=== PATIENT | female | born 1975 | race Caucasian/White ===

== ENCOUNTER 2016-08-19 09:31 | Emergency (ER) | payer OTHER ==
--- NOTE | 2016-08-19 11:35 | DIAGNOSTIC IMAGING REPORT ---
PROCEDURE: US VENOUS - RIGHT EXT INDICATION: PAIN TECHNIQUE: Duplex sonography of the deep venous system in the right lower extremity was performed. Compression and augmentation techniques were used. COMPARISON: 12/31/2010 FINDINGS: Each interrogated segment of deep vein from the common femoral vein into the calf veins demonstrates normal compressibility, augmentation and/or color Doppler flow without filling defect. No evidence of significant soft-tissue edema, soft-tissue mass or cyst. IMPRESSION: 1. No deep venous thrombosis in the right lower extremity.
--- NOTE | 2016-08-19 12:24 | ED CLINICAL REPORT ---
Clinical Report - Physicians/Mid Levels [facility] [address] [place] [address] 08/19/2016 9:31 Patient: ERASTO BROWNLEE Time Seen: 09:38. Arrived- By private vehicle. Historian- patient. HISTORY OF PRESENT ILLNESS Chief Complaint: LOWER EXTREMITY PAIN. Severity is described as being moderate. The quality is noted to be aching. This started today and is still present. It was abrupt in onset and has been constant. Symptoms located in the area of the right leg. The patient has not had redness. No swelling. She has had mild difficulty walking. It has been associated with pain in the right leg. Patient denies an injury. Similar symptoms previously: Once. Diagnosis: (ruptured Leiva's cyst). REVIEW OF SYSTEMS No chills, fever, sweats, chest pain or cough. No difficulty breathing, pedal edema, palpitations, abdominal pain or black stools. No bloody stools, constipation, diarrhea, nausea or vomiting. No urinary problems. All systems otherwise negative, except as recorded above. PAST HISTORY ( PCP - Mary). Problems: Leiva's Cyst. Sprain. Hyperventilation. Carcinoma in situ of uterine cervix. Migraine Headache. Additional Surgeries: Hysterectomy. Skin Cancer removal in face. Medications: Keppra Oral 400 mg, 2x a day. Estrogens Conjugated Oral. Ambien CR Oral. Allergies: No Known Drug Allergy. SOCIAL HISTORY Never smoker. Occasional alcohol use. No drug use. Is a local resident. FAMILY HISTORY Diabetes in first-degree relative (a child); cancer in first-degree relative (mother). ADDITIONAL NOTES The nursing notes have been reviewed. PHYSICAL EXAM Vital Signs: 08/19/2016 09:40 BP: 107/53. HR: 73. RR: 16. O2 saturation: 98%. Temp: 97.9 F. Pain level now: 3/10. Have been reviewed. Appearance: Alert. No acute distress. Eyes: Pupils equal, round and reactive to light. ENT: Pharynx normal. Neck: Normal inspection. Neck supple. CVS: Normal heart rate and rhythm. Heart sounds normal. Respiratory: No respiratory distress. Breath sounds normal. Abdomen: Soft and nontender. No organomegaly. Back: Normal inspection. ROM normal. Skin: Skin intact. Skin warm and dry. Normal skin color. Normal skin turgor. Extremities: Right knee: mild tenderness located in the posterior knee. Neurovascular intact distally. (some small varicose veins in the skin laterally). No joint effusion. No erythema, swelling or deformity. No limitation in ROM. Mild right-sided calf tenderness. Neuro: No motor deficit. No sensory deficit. LABS, X-RAYS, AND EKG Lower Extremity Sonography: Negative exam. discussed with the US tech. The study was independently viewed by me. Laboratory Tests: CBC w Diff: (NICOLA: 08/19/2016 10:40) ( MsgRcvd 08/19/2016 11:05) Final results Test Result Flag Units (Reference) WHITE BLOOD COUNT 6.2 K/uL (4.5-11.5) RED BLOOD COUNT 4.16 M/uL (4.00-5.20) HEMOGLOBIN 11.9 L gm/dL (12.0-16.0) HEMATOCRIT 35.6 L % (36.0-46.0) MEAN CELL VOLUME 86 fL (80-100) MEAN CORPUSCULAR HGB 29 pg (26-34) MEAN CORPUSCULAR HGB CONC 33 g/dL (31-37) RED CELL DISTRIBUTION WIDTH 12.8 % (11.6-14.8) PLATELET COUNT 274 K/uL (150-400) NEUTROPHIL % 56.1 % (50-75) LYMPH % 34.9 % (25-40) MONO % 6.1 % (3-14) EOSINOPHIL % 2.4 % (0-4) BASOPHIL % 0.5 % (0-2) PT with INR: (NICOLA: 08/19/2016 10:40) ( MsgRcvd 08/19/2016 11:20) Final results Test Result Flag Units (Reference) INR 1.0 (0.8-1.2) Low Intensity Therapy: INR 1.5-2.0 PT range 18.5-23.1Mod.Intensity Therapy: INR 2.0-3.0 PT range 23.1-31.5High Intensity Therapy: INR 2.5-3.5 PT range 27.4-35.5High Intensity Therapy 2: INR 3.0-4.0 PT range 31.5-39.3 APTT 31 SECONDS (24-34) CMP: (NICOLA: 08/19/2016 10:40) ( MsgRcvd 08/19/2016 12:14) Final results Test Result Flag Units (Reference) GLUCOSE 90 mg/dL (70-110) BUN 12 mg/dL (7-18) CREATININE 0.8 mg/dL (0.6-1.3) Estimated GFR >60 mL/min Estimated GFR- >60 mL/min Note: Persistent reduction over 3 months in eGFR<60 mL/min/1.73 m2 defines CKD. Patients with eGFR values>=60 mL/min/1.73 m2 may also have CKD if evidence ofpersistent proteinuria. Additional information may be foundat www.kidney.org. SODIUM 140 mmol/L (136-145) POTASSIUM 4.2 mmol/L (3.5-5.1) CHLORIDE 104 mmol/L (98-107) CARBON DIOXIDE 28 mmol/L (21-32) CALCIUM 9.3 mg/dL (8.5-10.1) TOTAL PROTEIN 7.3 g/dL (6.4-8.2) ALBUMIN 3.7 g/dL (3.3-5.0) BILIRUBIN, TOTAL 0.6 mg/dL (0.0-1.0) ALKALINE PHOSPHATASE 87 U/L (46-116) AST (SGOT) 16 U/L (15-37) ALT (SGPT) 22 U/L (12-78) . PROGRESS AND PROCEDURES Course of Care: Patient is stable. Patient/family counseled. Old medical records reviewed. Disposition: Discharged. Condition: stable. CLINICAL IMPRESSION Acute left thigh, knee and lower leg pain. INSTRUCTIONS Apply ice for 20 minutes four times a day until better. Don't apply ice directly to skin and don't use while asleep. You may walk and bear weight as tolerated. Warnings: Further evaluation is necessary. GENERAL WARNINGS: Return or contact your physician immediately if your condition worsens or changes unexpectedly, if not improving as expected, or if other problems arise. Your Current Medications: CONTINUE TAKING THE FOLLOWING MEDICATIONS: Ambien CR Oral. Estrogens Conjugated Oral. Keppra Oral : 400 mg 2x a day. OTC Medications: Motrin (available over the counter): take according to label instructions. Follow-up: Follow up with your doctor in seven days. Call for the next available appointment. Understanding of the discharge instructions verbalized by patient. (Electronically signed by Jeremy Collazo MD 08/19/2016 15:05)
--- NOTE | 2016-08-19 12:24 | ED ORDER SUMMARY ---
..... Patient: ERASTO BROWNLEE OrderSheet [facility] VisitID: [id number] [place] [address] 40y, F Registration Date/Time: 08/19/2016 ORDER SHEET Weight: 63.5 kg (stated) Allergies: No Known Drug Allergy GENERAL ORDERS: US Venous Right Urgent (10:08/19/2016 Dara HE) (Ack 10:38 Stephan) (10:54 JBest R.N.) CBC w Diff Urgent (10:08/19/2016 Dara HE) (Ack 10:38 Stephan) (10:53 JBest R.N.) CMP Urgent (10:08/19/2016 Dara HE) (Ack 10:38 Stephan) (10:53 JBest R.N.) PT with INR Urgent (10:08/19/2016 Dara HE) (Ack 10:38 Stephan) (10:53 JBest R.N.) PTT Urgent (10:08/19/2016 Dara HE) (Ack 10:38 Stephan) (10:53 JBest R.N.) MEDICATION ORDERS: IV FLUIDS: IV Saline Lock (:08/19/2016 Dara HE) (10:53 LSullivan R.N.) ORDER SHEET NOTES: [Electronically signed by Bety Yates R.N. (12:56 08/19/2016)] [Electronically signed by Jeremy Collazo MD (15:05 08/19/2016)] [Electronically locked/signed by Bety Yates R.N. (12:56 08/19/2016)]
--- NOTE | 2016-08-19 12:24 | ED NURSING NOTES ---
Clinical Report - Nurses [facility] [address] 08/19/2016 9:31 Patient: ERASTO BROWNLEE TRIAGE Triage time 0935 AM. Acuity: LEVEL 4. Chief Complaint: RIGHT LOWER EXTREMITY PAIN and SWELLING. --09:50 Bety Yates R.N. 09:40 08/19/16. BP: 107/53. HR: 73. RR: 16. O2 saturation: 98%. Temp: 97.9 F. Pain level now: 08/05. --09:50 Bety Yates R.N. SEPSIS SCREEN: Sepsis Screen. Negative (no infection suspected/documented). KINGSLEY COMA SCORE: Kingsley Coma Scale: 15- eyes open spontaneously (4); best verbal response- oriented x 4 (5); best motor response- obeys commands (6). --09:51 Bety Yates R.N. correction to prior entry -patient called PCP prior to arrival and was referred to the ED for a work up. PCP did not contact ED prior to arrival as stated above. --11:22 Bety Yates R.N. Weight: 63.5 kg stated. Height/Length: 63 inches Per Patient. BMI: 24.8. --09:47 Bety Yates R.N. Medications Ambien CR Oral. --09:44 Bety Yates R.N. Estrogens Conjugated Oral. --09:44 Bety Yates R.N. Keppra Oral 400 mg, 2x a day. --09:44 Bety Yates R.N. Allergies No Known Drug Allergy. --09:44 Bety Yates R.N. History Arrived by private vehicle. Historian: patient. Primary care physician notified of patient's arrival. Primary physician called the ED prior to patient's arrival and referred the patient for evaluation. This occurred today. 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 PAST MEDICAL HX: Immunizations: up-to-date. Denies current . SURGERY HX: Had hysterectomy. SOCIAL HX: Never smoker. No alcohol use or drug use. SELF HARM ASSESSMENT: A self harm assessment was performed. The patient answered "no" to the question "Do you have thoughts of harming or killing yourself?". ABUSE ASSESSMENT: Abuse assessment: ("yes") The patient was asked "Do you feel safe in your home?". --09:50 Bety Yates R.N. PROBLEMS: Leiva's Cyst. Sprain. Hyperventilation. Carcinoma in situ of uterine cervix. Migraine Headache. --09:46 Bety Yates R.N. Interventions ID band on patient. --09:50 Bety Yates R.N. PHYSICAL ASSESSMENT Ambulatory to room. Patient gowned. GENERAL / NEURO / PSYCH: Oriented X 4. Alert. Appears in no acute distress. EXTREMITIES: Right thigh: tenderness and swelling. SKIN: Skin intact. Skin is warm and dry. --09:52 Bety Yates R.N. NURSING PROGRESS NOTES 09:53 08/19/16. Patient gowned. Patient identifiers checked. Call light placed in reach. Bed placed in lowest position. Patient ready for evaluation- ED physician notified. --09:53 Bety Yates R.N. 10:53 08/19/2016 Site #1 started via IV in the left antecubital space with an 20g angiocath; one attempt. Blood drawn: rainbow set. Labeled in the presence of the patient and sent to the lab. Saline lock flushed with 10 mL saline. --10:53 Svetlana Poole R.N. DISPOSITION / DISCHARGE 12:42 08/19/2016 Site #1 removed upon discharge. Bandage applied. --12:43 Bety Yates R.N. Condition at departure: improved. Discharge instructions provided and reviewed with the patient. Reviewed medication(s). Prescription(s) given to the patient. She has no activity restrictions. Patient verbalized understanding. Written instructions provided in Italian. The patient was discharged by the physician. She was discharged home and accompanied by family. She left the Emergency Department ambulatory and via private vehicle. Patient driving. --12:44 Bety Yates R.N. 12:42 08/19/16. BP: 101/50. HR: 73. RR: 16. Temp: 98 F. Pain level now: 07/08. --12:44 Bety Yates R.N. 12:44 08/19/16. O2 saturation: 99%. --12:45 Bety Yates R.N. Locked/Released at 08/19/2016 12:56 by Bety Yates R.N.
--- NOTE | 2016-08-19 12:24 | ED ORDER SUMMARY ---
..... Patient: ERASTO BROWNLEE OrderSheet [facility] VisitID: [id number] [place] [address] 40y, F Registration Date/Time: 08/19/2016 ORDER SHEET Weight: 63.5 kg (stated) Allergies: No Known Drug Allergy GENERAL ORDERS: US Venous Right Urgent (10:08/19/2016 Dara HE) (Ack 10:38 Stephan) (10:54 JBest R.N.) CBC w Diff Urgent (10:08/19/2016 Dara HE) (Ack 10:38 Stephan) (10:53 JBest R.N.) CMP Urgent (10:08/19/2016 Dara HE) (Ack 10:38 Stephan) (10:53 JBest R.N.) PT with INR Urgent (10:08/19/2016 Dara HE) (Ack 10:38 Stephan) (10:53 JBest R.N.) PTT Urgent (10:08/19/2016 Dara HE) (Ack 10:38 Stephan) (10:53 JBest R.N.) MEDICATION ORDERS: IV FLUIDS: IV Saline Lock (:08/19/2016 Dara HE) (10:53 LSullivan R.N.) ORDER SHEET NOTES: [Electronically signed by Bety Yates R.N. (12:56 08/19/2016)] [Electronically signed by Jeremy Collazo MD (15:05 08/19/2016)] [Electronically locked/signed by Bety Yates R.N. (12:56 08/19/2016)]
--- NOTE | 2016-08-19 12:24 | ED NURSING NOTES ---
Clinical Report - Nurses [facility] [place] [address] 08/19/2016 9:31 Patient: ERASTO BROWNLEE TRIAGE Triage time 0935 AM. Acuity: LEVEL 4. Chief Complaint: RIGHT LOWER EXTREMITY PAIN and SWELLING. --09:50 Bety Yates R.N. 09:40 08/19/16. BP: 107/53. HR: 73. RR: 16. O2 saturation: 98%. Temp: 97.9 F. Pain level now: 08/05. --09:50 Bety Yates R.N. SEPSIS SCREEN: Sepsis Screen. Negative (no infection suspected/documented). KINGSLEY COMA SCORE: Kingsley Coma Scale: 15- eyes open spontaneously (4); best verbal response- oriented x 4 (5); best motor response- obeys commands (6). --09:51 Bety Yates R.N. correction to prior entry -patient called PCP prior to arrival and was referred to the ED for a work up. PCP did not contact ED prior to arrival as stated above. --11:22 Bety Yates R.N. Weight: 63.5 kg stated. Height/Length: 63 inches Per Patient. BMI: 24.8. --09:47 Bety Yates R.N. Medications Ambien CR Oral. --09:44 Bety Yates R.N. Estrogens Conjugated Oral. --09:44 Bety Yates R.N. Keppra Oral 400 mg, 2x a day. --09:44 Bety Yates R.N. Allergies No Known Drug Allergy. --09:44 Bety Yates R.N. History Arrived by private vehicle. Historian: patient. Primary care physician notified of patient's arrival. Primary physician called the ED prior to patient's arrival and referred the patient for evaluation. This occurred today. 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 PAST MEDICAL HX: Immunizations: up-to-date. Denies current . SURGERY HX: Had hysterectomy. SOCIAL HX: Never smoker. No alcohol use or drug use. SELF HARM ASSESSMENT: A self harm assessment was performed. The patient answered "no" to the question "Do you have thoughts of harming or killing yourself?". ABUSE ASSESSMENT: Abuse assessment: ("yes") The patient was asked "Do you feel safe in your home?". --09:50 Bety Yates R.N. PROBLEMS: Leiva's Cyst. Sprain. Hyperventilation. Carcinoma in situ of uterine cervix. Migraine Headache. --09:46 Bety Yates R.N. Interventions ID band on patient. --09:50 Bety Yates R.N. PHYSICAL ASSESSMENT Ambulatory to room. Patient gowned. GENERAL / NEURO / PSYCH: Oriented X 4. Alert. Appears in no acute distress. EXTREMITIES: Right thigh: tenderness and swelling. SKIN: Skin intact. Skin is warm and dry. --09:52 Bety Yates R.N. NURSING PROGRESS NOTES 09:53 08/19/16. Patient gowned. Patient identifiers checked. Call light placed in reach. Bed placed in lowest position. Patient ready for evaluation- ED physician notified. --09:53 Bety Yates R.N. 10:53 08/19/2016 Site #1 started via IV in the left antecubital space with an 20g angiocath; one attempt. Blood drawn: rainbow set. Labeled in the presence of the patient and sent to the lab. Saline lock flushed with 10 mL saline. --10:53 Svetlana Poole R.N. DISPOSITION / DISCHARGE 12:42 08/19/2016 Site #1 removed upon discharge. Bandage applied. --12:43 Bety Yates R.N. Condition at departure: improved. Discharge instructions provided and reviewed with the patient. Reviewed medication(s). Prescription(s) given to the patient. She has no activity restrictions. Patient verbalized understanding. Written instructions provided in Croatian. The patient was discharged by the physician. She was discharged home and accompanied by family. She left the Emergency Department ambulatory and via private vehicle. Patient driving. --12:44 Bety Yates R.N. 12:42 08/19/16. BP: 101/50. HR: 73. RR: 16. Temp: 98 F. Pain level now: 07/08. --12:44 Bety Yates R.N. 12:44 08/19/16. O2 saturation: 99%. --12:45 Bety Yates R.N. Locked/Released at 08/19/2016 12:56 by Btey Yates R.N.
--- NOTE | 2016-08-19 15:05 | ED MAR SUMMARY ---
..... Medication Administration Record [facility] [address] [place] [id number] Patient: ERASTO BROWNLEE Visit ID: [id number] 40y, F Weight: 63.5 kg Height/Length: 63 in BMI: 24.8 ALLERGIES: No Known Drug Allergy
--- NOTE | 2016-08-19 15:05 | ED MED RECONCILIATION SUMMARY ---
Patient: ERASTO BROWNLEE Medication Reconciliation Report [facility] VisitID: [id number] [address] [place] [address] 40y, F Registration Date/Time: 08/19/2016 Weight: 63.5 kg Height/Length: 63 in. BMI: 24.8 ALLERGIES: No Known Drug Allergy The patient's Home Medications are listed below: CONTINUE TAKING THE FOLLOWING MEDICATIONS: Ambien CR Oral Estrogens Conjugated Oral Keppra Oral 400 mg, 2x a day The source(s) of the original Home Medication information: Not obtained. The following Medications were given to the patient in the Emergency Department: None. The following Medications were prescribed to the patient: Motrin (available over the counter): take according to label instructions. -- Jeremy Collazo MD
--- NOTE | 2016-08-19 15:05 | ED MAR SUMMARY ---
..... Medication Administration Record [facility] [address] [place], [place] [id number] Patient: ERASTO BROWNLEE Visit ID: [id number] 40y, F Weight: 63.5 kg Height/Length: 63 in BMI: 24.8 ALLERGIES: No Known Drug Allergy
--- NOTE | 2016-08-19 15:05 | ED DISCHARGE INSTRUCTIONS ---
Patient: ERASTO BROWNLEE General Instructions [facility] VisitID: [id number] [place] [address] 40y, F Registration Date/Time: 08/19/2016 Acute left thigh, knee and lower leg pain. INSTRUCTIONS Apply ice for 20 minutes four times a day until better. Don't apply ice directly to skin and don't use while asleep. You may walk and bear weight as tolerated. Warnings: Further evaluation is necessary. GENERAL WARNINGS: Return or contact your physician immediately if your condition worsens or changes unexpectedly, if not improving as expected, or if other problems arise. Your Current Medications: CONTINUE TAKING THE FOLLOWING MEDICATIONS: Ambien CR Oral. Estrogens Conjugated Oral. Keppra Oral : 400 mg 2x a day. OTC Medications: Motrin (available over the counter): take according to label instructions. Follow-up: Follow up with your doctor in seven days. Call for the next available appointment. Understanding of the discharge instructions verbalized by patient. ADDITIONAL INFORMATION Myofascial Pain Syndrome: Fibrositis Your pain is caused by a state of chronic muscle tension. This condition is called by various names: myofascial pain, fibrositis and trigger point pain. This can also be due to mechanical stress (such as working at a computer terminal for long periods; or work that requires repetitive motions of the arms or hands) or emotional stress (such as problems on the job or in your personal life). Sometimes there is no obvious cause. The pain can occur in the area of the muscle spasm or at a site distant to it. For example, spasm of a neck muscle can cause headache. Spasm of the muscle near the shoulder blade can cause pain shooting down the arm. Home Care: Try to identify the factors that may be causing your problem and change them: If you feel thatemotional stressis a cause of your pain, learn methods to deal more effectively with the stress in your life. These may include regular exercise, muscle relaxation techniques, meditation or simply taking time out for yourself. Consult your doctor or go to a local bookstore and review the many books and tapes available on the subject of stress reduction. If you feel that physical stress is a cause for your pain, try to modify any poor work habits. You may use acetaminophen (Tylenol) or ibuprofen (Motrin, Advil) to control pain, unless another medicine was prescribed. [NOTE: If you have chronic liver or kidney disease or ever had a stomach ulcer or GI bleeding, talk with your doctor before using these medicines.] The use of heat to the muscle (hot compress or heating pad) will be helpful to reduce muscle spasm. Some persons get relief with ice packs. Apply an ice pack (crushed or cubed ice in a plastic bag, wrapped in a towel) for 20 minutes at a time as needed. Use the method that feels best to you. Massaging the trigger point and stretching out the muscleare an important parts of prevention and treatment. Trigger point massage can be done by first applying heat to the area to warm and prepare the muscle. Have someone apply steady thumb pressure directly on the knot in the muscle (the most tender point) for 30 seconds. Release the pressure, then massage the surrounding muscle. Repeat the process, applying more pressure to the trigger point each time. Do this up to the limit of pain. With each treatment, the trigger point should become less tender and the pain should decrease. You can apply local pressure to trigger points in the back by lying on the floor with a tennis ball under the trigger point. Follow Up with your doctor as advised or if not improving within the next week. It may be necessary for you to receive physical therapy if you do not respond to home treatment alone. Get Prompt Medical Attention if any of the following occur: If your trigger point is in the chest muscles, observe for pain that becomes more severe, lasts longer, or spreads into your shoulder/arm, neck or back; you develop trouble breathing, sweating, nausea or vomiting in association with chest pain If you develop weakness or numbness in an extremity If your pain worsens, regardless of its location Ibuprofen Oral tablet What is this medicine? IBUPROFEN (eye BYOO proe fen) is a non-steroidal anti-inflammatory drug (NSAID). It is used for dental pain, fever, headaches or migraines, osteoarthritis, rheumatoid arthritis, or painful monthly periods. It can also relieve minor aches and pains caused by a cold, flu, or sore throat. How should I use this medicine? Take this medicine by mouth with a glass of water. Follow the directions on the prescription label. Take this medicine with food if your stomach gets upset. Try to not lie down for at least 10 minutes after you take the medicine. Take your medicine at regular intervals. Do not take your medicine more often than directed. A special MedGuide will be given to you by the pharmacist with each prescription and refill. Be sure to read this information carefully each time. Talk to your roll repairer regarding the use of this medicine in children. Special care may be needed. What side effects may I notice from receiving this medicine? Side effects that you should report to your doctor or health complex care nurse practitioner as soon as possible: allergic reactions like skin rash, itching or hives, swelling of the face, lips, or tongue black or bloody stools, blood in the urine or in vomit breathing problems changes in vision chest pain general ill feeling or flu-like symptoms nausea or vomiting redness, blistering, peeling or loosening of the skin, including inside the mouth slurred speech or weakness on one side of the body stomach pain unexplained weight gain or swelling unusually weak or tired yellowing of eyes or skin Side effects that usually do not require medical attention (report to your doctor or health complex care nurse practitioner if they continue or are bothersome): constipation or diarrhea dizziness gas or heartburn stomach upset What may interact with this medicine? Do not take this medicine with any of the following medications: cidofovir ketorolac methotrexate pemetrexed This medicine may also interact with the following medications: alcohol aspirin diuretics lithium other drugs for inflammation like prednisone warfarin What if I miss a dose? If you miss a dose, take it as soon as you can. If it is almost time for your next dose, take only that dose. Do not take double or extra doses. Where should I keep my medicine? Keep out of the reach of children. Store at room temperature between 15 and 30 degrees C (59 and 86 degrees F). Keep container tightly closed. Throw away any unused medicine after the expiration date. What should I tell my health care provider before I take this medicine? They need to know if you have any of these conditions: asthma cigarette smoker drink more than 3 alcohol containing drinks a day heart disease or circulation problems such as heart failure or leg edema (fluid retention) high blood pressure kidney disease liver disease stomach bleeding or ulcers an unusual or allergic reaction to ibuprofen, aspirin, other NSAIDS, other medicines, foods, dyes, or preservatives or trying to get breast-feeding What should I watch for while using this medicine? Tell your doctor or healthcare professional if your symptoms do not start to get better or if they get worse. This medicine does not prevent heart attack or stroke. In fact, this medicine may increase the chance of a heart attack or stroke. The chance may increase with longer use of this medicine and in people who have heart disease. If you take aspirin to prevent heart attack or stroke, talk with your doctor or health complex care nurse practitioner. Do not take other medicines that contain aspirin, ibuprofen, or naproxen with this medicine. Side effects such as stomach upset, nausea, or ulcers may be more likely to occur. Many medicines available without a prescription should not be taken with this medicine. This medicine can cause ulcers and bleeding in the stomach and intestines at any time during treatment. Ulcers and bleeding can happen without warning symptoms and can cause . To reduce your risk, do not smoke cigarettes or drink alcohol while you are taking this medicine. You may get drowsy or dizzy. Do not drive, use machinery, or do anything that needs mental alertness until you know how this medicine affects you. Do not stand or sit up quickly, especially if you are an older patient. This reduces the risk of dizzy or fainting spells. This medicine can cause you to bleed more easily. Try to avoid damage to your teeth and gums when you brush or floss your teeth. You have been given the following additional information: Myofascial Pain Syndrome Ibuprofen Oral tablet You may walk and bear weight as tolerated. (Electronically signed by Jeremy Collazo MD 08/19/2016 15:05)
--- NOTE | 2016-08-19 15:05 | ED MED RECONCILIATION SUMMARY ---
Patient: ERASTO BROWLNEE Medication Reconciliation Report [facility] VisitID: [id number] [address] [place] [address] 40y, F Registration Date/Time: 08/19/2016 Weight: 63.5 kg Height/Length: 63 in. BMI: 24.8 ALLERGIES: No Known Drug Allergy The patient's Home Medications are listed below: CONTINUE TAKING THE FOLLOWING MEDICATIONS: Ambien CR Oral Estrogens Conjugated Oral Keppra Oral 400 mg, 2x a day The source(s) of the original Home Medication information: Not obtained. The following Medications were given to the patient in the Emergency Department: None. The following Medications were prescribed to the patient: Motrin (available over the counter): take according to label instructions. -- Jeremy Collazo MD
== END 2016-08-19 12:36 | disposition home or self-care (01) ==
LOC: ED SRH 09:31
DX: M79.661 Pain in right lower leg (principal); M25.561 Pain in right knee; M79.651 Pain in right thigh